=== PATIENT | female | born 2000 | race Caucasian/White ===

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

== ENCOUNTER 2021-04-17 18:04 | Emergency (ER) | payer OTHER ==
[2021-04-17 18:18] VITALS: BP 113/73; PULSE 94; TEMP 98.3; BMI 19.6
== END 2021-04-17 18:51 | disposition home or self-care (01) ==
LOC: JERFT 18:04
DX: R07.9 Chest pain, unspecified (principal)
CPT/HCPCS: 99283-25